=== PATIENT | male | born 1985 | race African-American/Black ===

== ENCOUNTER 2019-01-27 11:36 | Emergency (ER) | payer SELFPAY ==
[~2019-01-27] VITALS: Ht 180.3 cm; Wt 82.0 kg
[2019-01-27 12:11] VITALS: BP 134/89
== END 2019-01-27 14:46 | disposition left against medical advice (07) ==
LOC: ER 11:36
DX: Z53.21 Procedure and treatment not carried out due to patient leaving prior to being seen by health care provider (principal)

== ENCOUNTER 2023-02-02 22:19 | Emergency (ER) | payer MEDICAID ==
[~2023-02-02] VITALS: Ht 177.8 cm; Wt 95.0 kg
[2023-02-03 00:15] VITALS: BP 144/87; PULSE 71; RESP 16; TEMP 98.6; O2SAT 97
== END 2023-02-03 04:11 | disposition left against medical advice (07) ==
LOC: ER 22:29
DX: Z53.21 Procedure and treatment not carried out due to patient leaving prior to being seen by health care provider (principal)
CPT/HCPCS: 99281